=== PATIENT | female | born 2000 | race Caucasian/White ===

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

== ENCOUNTER 2018-05-17 22:24 | Inpatient (IN) | payer MEDICAID ==
--- NOTE | 2018-05-17 22:44 | EDPHY ---
General Time Seen by Provider: 05/17/18 22:44 Narrative: CLINICAL IMPRESSION: Small-bowel obstruction ASSESSMENT/PLAN: Patient is a 18-year-old female with a history of AL in remission, remote bowel obstruction requiring adhesiolysis presents to the Emergency Department with sudden-onset abdominal pain and decreased appetite. Patient is afebrile, she is uncomfortable appearing however not toxic-appearing. Her vital signs were reviewed, no findings to suggest sepsis. CBC revealed no evidence of leukocytosis, BMP grossly unremarkable. Lipase and hepatic function panel also grossly unremarkable. negative. CT abdomen and pelvis revealed multiple dilated loops of small bowel with a transition point present in the lower abdomen at midline consistent with small-bowel obstruction. Dr. Zapata with General surgery was consulted, she will be admitted to the surgery service for further observation and management. Last ate around 3 pm, NPO in the emergency department. NG tube placed, 300 mL of gastric contents removed. KUB showed NG with good placement. The patient remained hemodynamically stable and her pain adequately controlled prior to transfer to the floor. DIFFERENTIAL DX: Abdominal pain including but not limited to small-bowel obstruction, appendicitis, cholecystitis, gastritis and urinary tract infection. ED COURSE: 2254: Discussed with Dr. Salas 2335: Still awaiting results of CT scan, patient with escalating pain. Abdomen is soft, no evidence of a surgical abdomen at this time. Generalized tenderness to palpation with mild voluntary guarding. 0000: Case discussed with Dr. Zapata, findings consistent with a small- bowel obstruction. Will proceed with NG tube in the emergency department and admit. 0015: Dr. Zapata evaluating patient in the emergency department. 0030: KUB reviewed with Dr. Zapata, NG tube appropriately placed in the stomach. CHIEF COMPLAINT: Abdominal pain HPI: Patient is a 18-year-old female with a history of ALL, 4 years in remission as well as remote small bowel obstruction requiring adhesiolysis who presents to the Emergency Department with sudden-onset periumbilical abdominal pain. Patient reports this morning she woke up and felt fine, had a normal bowel movement. At around 9:00 a.m. She started to experience some discomfort around her umbilicus, it waxed and waned in intensity however significantly worsened this afternoon has been persistent. She does have a history of small-bowel obstruction 5 years prior requiring adhesiolysis several years prior, feels mildly similar from what she can remember. She denies any nausea, vomiting or fever. Her appetite has been down throughout the day. She denies any significant abdominal bloating, issues with constipation or diarrhea. She denies any pelvic pain, vaginal pain or vaginal bleeding. Last menstrual period was 2 weeks ago and normal. She denies any possibility of being . She denies any urinary symptoms to include dysuria, hematuria or increased frequency. PMH: A LL, bowel obstruction Pertinent Past Surgical History: Laparoscopic adhesiolysis Family History: Not contributory Social History: Denies illicit drug use or cigarette smoking REVIEW OF SYSTEMS: All other systems negative Constitutional: Decreased appetite. No fever, no chills. Eyes: No discharge, vision change ENT: No sore throat, congestion, ear pain. Cardiovascular: No chest pain, no palpitations. Respiratory: No cough, no shortness of breath. Gastrointestinal: Abdominal pain, no nausea, vomiting or diarrhea. Genitourinary: No hematuria, dysuria, flank pain, pelvic pain. Musculoskeletal: No back pain, joint swelling, joint pain, myalgias. Skin: No rashes, color change. Neurological: No headache, dizziness, weakness. PHYSICAL EXAM: General Appearance: Alert, uncomfortable appearing however not toxic-appearing. HENT: Normocephalic, atraumatic. Bilateral external ears are normal. Bilateral tympanic membranes are normal with pearly james reflex. Nares are clear, mucosa is pink. Oropharynx is clear, uvula is midline. There is no tonsillar enlargement or exudate. The dentition is normal. Eyes: PERRLA, EOMI. Conjunctiva pink, no pallor or injection Neck: Supple, nontender, no lymphadenopathy, no midline pain, FROM, no meningismus. Respiratory: There are no retractions, lungs are clear to auscultation. Cardiac: Regular rate and rhythm, no murmurs or gallops. Gastrointestinal: Abdomen is soft and mildly distended. They are well healed laparoscopic incisions on her lower abdomen. There are no masses or hernias appreciated. She has diffuse tenderness to palpation with voluntary guarding however is most tender in the periumbilical region. Bowel sounds are present. Neurological: Alert and oriented x 3, CN 2-12 grossly intact, normal gait no ataxia, DTR's intact, normal sensation and strength Skin: Warm, dry, no rashes, no nodules on palpation. Musculoskeletal: Extremities are symmetrical, full range of motion, no tenderness, deformity, swelling, or erythema. Psychiatric: Patient is oriented X 3, there is no agitation. MEDICAL DECISION MAKING: Patient was seen independently. Secondary supervising physician at time of evaluation was Dr. Salas. Diagnosis: Abdominal pain. New, requires workup Summary: See Assessment and Plan for summary of ED visit Clinical lab tests: ordered / reviewed. Independent visualization of images, tracing, or specimens: Yes. Decision to obtain medical records or history from someone other than the patient: No Review / Summarize previous medical records: Yes Discussed patient with another provider: Yes, Dr. Salas Patient Progress: Stable, admit. - History Smoking Status: Never smoked - Objective Vital Signs: Initial Vital Signs Temperature (C) 36.6 C 05/17/18 22:28 Heart Rate 81 05/17/18 22:28 Respiratory Rate 18 05/17/18 22:28 Blood Pressure 146/101 H 05/17/18 22:28 O2 Sat (%) 99 05/17/18 22:28 O2 Delivery Mode Room Air Allergies/Adverse Reactions: cephalexin [From Keflex] Allergy (Verified 05/17/18 22:27) egg [eggs] Allergy (Verified 05/17/18 22:27) tree nut [Nuts] Allergy (Verified 05/17/18 22:27) walnut Allergy (Verified 05/17/18 22:27) Laboratory Results: Laboratory Results 05/17/18 22:41 05/17/18 22:41 05/17/18 05/17/18 05/17/18 22:41 22:41 22:41 WBC 9.05 10^3/uL 10^3/uL (3.80-9.50) RBC 5.73 10^6/uL H 10^6/uL (4.18-5.33) Hgb 17.1 g/dL H g/dL (12.6-16.3) Hct 49.9 % H % (38.0-47.0) MCV 87.1 fL fL (81.5-99.8) MCH 29.8 pg pg (27.9-34.1) MCHC 34.3 g/dL g/dL (32.4-36.7) RDW 14.0 % % (11.5-15.2) Plt Count 283 10^3/uL 10^3/uL (150-400) MPV 8.9 fL fL (8.7-11.7) Neut % (Auto) 71.7 % % (39.3-74.2) Lymph % (Auto) 21.1 % % (15.0-45.0) [place] % (Auto) 6.3 % % (4.5-13.0) Eos % (Auto) 0.3 % L % (0.6-7.6) Baso % (Auto) 0.3 % % (0.3-1.7) Nucleat RBC Rel Count 0.0 % % (0.0-0.2) Absolute Neuts (auto) 6.48 10^3/uL 10^3/uL (1.70-6.50) Absolute Lymphs (auto) 1.91 10^3/uL 10^3/uL (1.00-3.00) Absolute Monos (auto) 0.57 10^3/uL 10^3/uL (0.30-0.80) Absolute Eos (auto) 0.03 10^3/uL 10^3/uL (0.03-0.40) Absolute Basos (auto) 0.03 10^3/uL 10^3/uL (0.02-0.10) Absolute Nucleated RBC 0.00 10^3/uL 10^3/uL (0-0.01) Immature Gran % 0.3 % % (0.0-1.1) Immature Gran # 0.03 10^3/uL 10^3/uL (0.00-0.10) Sodium 141 mEq/L mEq/L (135-145) Potassium 3.5 mEq/L mEq/L (3.5-5.2) Chloride 104 mEq/L mEq/L (97-110) Carbon Dioxide 22 mEq/l mEq/l (22-31) Anion Gap 15 mEq/L H mEq/L (6-14) BUN 16 mg/dL mg/dL (7-23) Creatinine 0.8 mg/dL mg/dL (0.6-1.0) Estimated GFR > 60 Glucose 84 mg/dL mg/dL (70-100) Calcium 10.4 mg/dL mg/dL (8.5-10.4) Total Bilirubin 0.5 mg/dL mg/dL (0.1-1.4) Conjugated Bilirubin 0.3 mg/dL mg/dL (0.0-0.5) Unconjugated Bilirubin 0.2 mg/dL mg/dL (0.0-1.1) AST 35 IU/L IU/L (14-46) ALT 44 IU/L IU/L (9-52) Alkaline Phosphatase 122 IU/L IU/L (38-126) Total Protein 8.3 g/dL H g/dL (6.3-8.2) Albumin 5.1 g/dL H g/dL (3.5-5.0) Lipase 251 IU/L IU/L (23-300) Beta HCG, Qual NEGATIVE Medications Given: Discontinued Medications Hydromorphone HCl (Dilaudid) 0.5 mg IVP EDNOW ONE Stop: 05/17/18 22:54 Last Admin: 05/17/18 23:14 Dose: 0.5 mg Hydromorphone HCl (Dilaudid) 0.5 mg IVP EDNOW ONE Stop: 05/18/18 00:42 Last Admin: 05/18/18 00:46 Dose: 0.5 mg Sodium Chloride (Ns) 1,000 mls @ 0 mls/hr IV EDNOW ONE; Wide Open PRN Reason: Protocol Stop: 05/17/18 22:54 Last Admin: 05/17/18 23:14 Dose: 1,000 mls Departure - Departure Disposition: [facility] Inpatient Acute Clinical Impression: Small bowel obstruction
[2018-05-17] MEDS ORDERED: NS 1,000 ML IV ONE (22:53)
[2018-05-17] MEDS ORDERED: HYDROmorphONE/DILAUDID 2 MG/ML INJ IVP ONE (22:53)
[2018-05-17 22:59] LABS: PLATELET COUNT 283 10^3/uL (150-400)
[2018-05-17] MEDS ORDERED: HYDROmorphONE/DILAUDID 1 MG/ML INJ ONE (23:12)
[2018-05-17] MEDS ORDERED: IOPAMIDOL (ISOVUE-300) 100 ML BTL ONE (23:20)
[2018-05-18] MEDS ORDERED: HYDROmorphONE/DILAUDID 2 MG/ML INJ IVP ONE ×3 (00:41→13:00)
[2018-05-18] MEDS ORDERED: HYDROmorphONE/DILAUDID 1 MG/ML INJ ONE (00:45)
[2018-05-18] MEDS ORDERED: BENZOCAINE UNIT DOSE SPRAY HURRICAINE MM ONE (01:12)
[2018-05-18] MEDS ORDERED: LIDOCAINE 2% VISCOUS 15 ML UDCUP ONE (01:13)
[2018-05-18] MEDS ORDERED: PROMETHAZINE HCL 25 MG/ML INJ IVP PRN (01:16)
[2018-05-18] MEDS ORDERED: ACETAMINOPHEN 325 MG TAB PO PRN (01:16)
--- NOTE | 2018-05-18 01:25 | PDGENHP ---
History and Physical - Chief Complaint abdominal pain - History of Present Illness 18yo F presents with acute onset abdominal pain. Briefly, was in her usual state of health this AM, awoke, had a normal BM and began throughout the day to have progressive, colicaky abdominal cramps. She states that throughout the day the cramping got somewhat worse and about a p.m. Tonight had a significant amount of pain which prompted her presentation here. She states that the colicky, crampy nature of the abdominal pain is similar to her bowel obstruction 5 years ago. She denies having any nausea or vomiting she has not been passing any flatus today. She does endorse having a small-bowel obstruction approximately 5 years ago where she was taken to the operating room for adhesiolysis prior to this she denies having any previous surgical history. She does have a medical history of a LL for which she is in remission, she takes no current medications. History Information - Allergies/Home Medication List Allergies/Adverse Reactions: cephalexin [From Keflex] Allergy (Verified 05/17/18 22:27) egg [eggs] Allergy (Verified 05/17/18 22:27) tree nut [Nuts] Allergy (Verified 05/17/18 22:27) walnut Allergy (Verified 05/17/18 22:27) I have personally reviewed and updated: family history, medical history, social history, surgical history Past Medical History: ALL in remission - Surgical History Additional surgical history: ex-laparoscopy 5yrs ago for SBO - Family History Positive for: non-pertinent - Social History Smoking Status: Never smoked Additional social history: student, boyfriend at bedside Review of Systems Review of Systems: ROS: 10pt was reviewed & negative except for what was stated in HPI & below Physical Exam Physical Exam: Temp Pulse Resp BP Pulse Ox 36.6 C 61 18 145/92 H 100 05/17/18 22:28 05/18/18 00:42 05/18/18 00:42 05/18/18 00:42 05/18/18 00:42 Constitutional: no apparent distress, appears nourished, uncomfortable Eyes: PERRL, anicteric sclera, EOMI Ears, Nose, Mouth, Throat: moist mucous membranes, hearing normal, ears appear normal, no oral mucosal ulcers Cardiovascular: regular rate and rhythym, no murmur, rub, or gallop, No edema Respiratory: no respiratory distress, no rales or rhonchi, clear to auscultation Gastrointestinal: other (hypoactive bowel sounds, minimally distended, tender to deep palpation, no rebound ) Genitourinary: no bladder fullness, no bladder tenderness Skin: warm, normal color, no rashes or abrasions, no fluctuance, no induration, No mottled Musculoskeletal: full muscle strength, no muscle tenderness, normal joint ROM, no joint effusions Psychiatric: interacting appropriately, not anxious, not encephalopathic, thought process linear Lymph, Heme, Immunologic: no cervical LAD, no supraclavicular LAD Lab Data & Imaging Review 05/17/18 22:41 05/17/18 22:41 WBC 9.05 10^3/uL (3.80-9.50) 05/17/18 22:41 RBC 5.73 10^6/uL (4.18-5.33) H 05/17/18 22:41 Hgb 17.1 g/dL (12.6-16.3) H 05/17/18 22:41 Hct 49.9 % (38.0-47.0) H 05/17/18 22:41 MCV 87.1 fL (81.5-99.8) 05/17/18 22:41 MCH 29.8 pg (27.9-34.1) 05/17/18 22:41 MCHC 34.3 g/dL (32.4-36.7) 05/17/18 22:41 RDW 14.0 % (11.5-15.2) 05/17/18 22:41 Plt Count 283 10^3/uL (150-400) 05/17/18 22:41 MPV 8.9 fL (8.7-11.7) 05/17/18 22:41 Neut % (Auto) 71.7 % (39.3-74.2) 05/17/18 22:41 Lymph % (Auto) 21.1 % (15.0-45.0) 05/17/18 22:41 [place] % (Auto) 6.3 % (4.5-13.0) 05/17/18 22:41 Eos % (Auto) 0.3 % (0.6-7.6) L 05/17/18 22:41 Baso % (Auto) 0.3 % (0.3-1.7) 05/17/18 22:41 Nucleat RBC Rel Count 0.0 % (0.0-0.2) 05/17/18 22:41 Absolute Neuts (auto) 6.48 10^3/uL (1.70-6.50) 05/17/18 22:41 Absolute Lymphs (auto) 1.91 10^3/uL (1.00-3.00) 05/17/18 22:41 Absolute Monos (auto) 0.57 10^3/uL (0.30-0.80) 05/17/18 22:41 Absolute Eos (auto) 0.03 10^3/uL (0.03-0.40) 05/17/18 22:41 Absolute Basos (auto) 0.03 10^3/uL (0.02-0.10) 05/17/18 22:41 Absolute Nucleated RBC 0.00 10^3/uL (0-0.01) 05/17/18 22:41 Immature Gran % 0.3 % (0.0-1.1) 05/17/18 22:41 Immature Gran # 0.03 10^3/uL (0.00-0.10) 05/17/18 22:41 Sodium 141 mEq/L (135-145) 05/17/18 22:41 Potassium 3.5 mEq/L (3.5-5.2) 05/17/18 22:41 Chloride 104 mEq/L (97-110) 05/17/18 22:41 Carbon Dioxide 22 mEq/l (22-31) 05/17/18 22:41 Anion Gap 15 mEq/L (6-14) H 05/17/18 22:41 BUN 16 mg/dL (7-23) 05/17/18 22:41 Creatinine 0.8 mg/dL (0.6-1.0) 05/17/18 22:41 Estimated GFR > 60 05/17/18 22:41 Glucose 84 mg/dL (70-100) 05/17/18 22:41 Calcium 10.4 mg/dL (8.5-10.4) 05/17/18 22:41 Total Bilirubin 0.5 mg/dL (0.1-1.4) 05/17/18 22:41 Conjugated Bilirubin 0.3 mg/dL (0.0-0.5) 05/17/18 22:41 Unconjugated Bilirubin 0.2 mg/dL (0.0-1.1) 05/17/18 22:41 AST 35 IU/L (14-46) 05/17/18 22:41 ALT 44 IU/L (9-52) 05/17/18 22:41 Alkaline Phosphatase 122 IU/L (38-126) 05/17/18 22:41 Total Protein 8.3 g/dL (6.3-8.2) H 05/17/18 22:41 Albumin 5.1 g/dL (3.5-5.0) H 05/17/18 22:41 Lipase 251 IU/L (23-300) 05/17/18 22:41 Beta HCG, Qual NEGATIVE 05/17/18 22:41 Visualized and Interpreted imaging results: Yes Interpretation: CT: SBO, transition point identified distally in pelvis. Fecalization of small bowel present, c/w somewhat of a chronic obstructive process Assessment & Plan Plan: 18yo F c SBO - plan for admission, hydration, NGT placement in ED given significant stomach distention - IV pain medication - discussed plan: decompress for 24hrs or so, re-evaluate. SBFT vs feeding trial vs OR at that time. She understands and wishes to proceed.
[2018-05-18] MEDS ORDERED: KETOROLAC 30 MG/1 ML SDV IVP ONE (01:32)
[2018-05-18] MEDS: NS 1,000 ML IV SCH ×2 (02:00→17:34)
[2018-05-18] MEDS: HYDROmorphONE/DILAUDID 1 MG/ML INJ IVP PRN ×2 (04:34→06:19)
[2018-05-18 04:55] LABS: PLATELET COUNT 212 10^3/uL (150-400)
--- NOTE | 2018-05-18 06:11 | PDMN ---
Medical Necessity Medical necessity: Pt meets IP criteria as of 05/18/2018 per and MCG M-210 ( Intestincal obstruction); est los > 2 mn for ongoing tx and evaluation of small bowel obstruction; requiring NGT, IVF, surgical consultation, and pain control. Hx ALL, SBO.
[2018-05-18] MEDS: ONDANSETRON 4 MG/2 ML VIAL IVP PRN ×2 (06:19→20:45)
[2018-05-18] MEDS: KETOROLAC 15 MG/1 ML SDV IVP SCH ×2 (07:30→11:18)
[2018-05-18] MEDS ORDERED: LORazepam 2 MG/ML INJ IVP PRN (08:24)
--- NOTE | 2018-05-18 08:48 | SOAPPROG ---
SOAP Progress Note Assessment/Plan: Assessment: 18yo F c SBO - VSS, HDs - WBC still WNL - abdomen machine steak tenderizer and not any improvement despite good NGT output - she is clearly not improving, have tentatively placed her on OR for today for ex-lap. Discussed case with her and mom Plan: 05/18/18 08:47 Subjective: not any better Objective: Vital Signs Temp Pulse Resp BP Pulse Ox 36.6 C 57 L 14 127/89 H 94 05/18/18 04:45 05/18/18 04:45 05/18/18 04:45 05/18/18 04:45 05/18/18 01:58 Laboratory Results 05/18/18 04:40 05/18/18 04:40 05/17/18 05/18/18 05/19/18 05:59 05:59 05:59 Intake Total 1000 Output Total 600 Balance 400 ICD10 Worksheet Patient Problems: Problems Problem Status Onset Small bowel obstruction Acute
--- NOTE | 2018-05-18 10:45 | PDHPUP ---
History & Physical Update H&P update statement: This history and physical update is based on an assessment of the patient which was completed after admission or registration (within 24 hours), but prior to the surgery/procedure. H&P update: H&P reviewed & patient examined, no change in patient's condition since H&P completed
[2018-05-18] MEDS ORDERED: LR 1,000 ML IV ONE (11:27)
[2018-05-18] MEDS ORDERED: HYDROmorphONE/DILAUDID 2 MG/ML INJ ONE (12:33)
[2018-05-18] MEDS ORDERED: PHENOL 177 ML THROAT SPRAY PO PRN (13:16)
[2018-05-18] MEDS ORDERED: CEPACOL LOZENGE PO PRN (13:16)
[2018-05-18] MEDS ORDERED: MIDAZOLAM 2 MG/2 ML VIAL IVP ONE (13:48)
--- NOTE | 2018-05-18 13:49 | PDANEPAE ---
ANE Past Medical History - Pulmonary History Hx Oxygen in Use at Home: No Hx Sleep Apnea: No Sleep Apnea Screening Result - Last Documented: Negative - Endocrine History Hx Diabetes: No ANE Review of Systems Review of Systems: ANE Patient History - Allergies Allergies/Adverse Reactions: cephalexin [From Keflex] Allergy (Verified 05/17/18 22:27) egg [eggs] Allergy (Verified 05/17/18 22:27) tree nut [Nuts] Allergy (Verified 05/17/18 22:27) walnut Allergy (Verified 05/17/18 22:27) - Home Medications Home Medications: Acetaminophen [Tylenol 325mg (*)] 325 mg PO DAILY PRN 05/18/18 [Last Taken Unknown] Herbals/Supplements -Info Only 1 ea PO DAILY 05/18/18 [Last Taken Unknown] Melatonin [Melatonin 3 MG (*)] 3 mg PO HS PRN 05/18/18 [Last Taken Unknown] Multivitamins W-Minerals [Thera M Plus Tablet (*)] 1 each PO DAILY 05/18/18 [ Last Taken Unknown] - NPO status NPO Since - Liquids (Date): 05/17/18 NPO Since - Liquids (Time): 15:00 NPO Since - Solids (Date): 05/17/18 NPO Since - Solids (Time): 15:00 - Smoking Hx Smoking Status: Never smoked ANE Labs/Vital Signs - Labs Result Diagrams: 05/18/18 04:40 05/18/18 04:40 - Vital Signs Blood Pressure: 140/105 Heart Rate: 84 Respiratory Rate: 18 O2 Sat (%): 93 Height: 157.48 cm Weight: 52.16 kg ANE Physical Exam - Airway Neck exam: FROM Mallampati Score: Class 2 - Pulmonary Pulmonary: no respiratory distress - Cardiovascular Cardiovascular: regular rate and rhythym - ASA Status ASA Status: II, E ANE Anesthesia Plan Anesthesia Plan: general endotracheal anesthesia Regional Anesthesia: TAP block
[2018-05-18] MEDS ORDERED: fentaNYL 100 MCG/2 ML INJ ONE ×2 (13:57→16:09)
[2018-05-18] MEDS ORDERED: PROPOFOL 200 MG/20 ML VIAL ONE (13:57)
--- NOTE | 2018-05-18 14:21 | ASMTCMCOM ---
CM Note CM Note Notes: Pt went to OR today for SBO. Pt has mother local. No therapies ordered now. CM to follow pt progress. Date Signed: 05/18/2018 02:06 PM Electronically Signed By:CYNTHIA Mcginnis
[2018-05-18] MEDS ORDERED: ROCURONIUM 50 MG/5 ML VIAL ONE (14:54)
[2018-05-18] MEDS ORDERED: ONDANSETRON 4 MG/2 ML VIAL ONE ×2 (14:54→16:19)
[2018-05-18] MEDS ORDERED: RANITIDINE 50 MG/2 ML VIAL ONE (14:54)
[2018-05-18] MEDS ORDERED: LIDOCAINE 2% 100 MG/5 ML SYR ONE (14:54)
[2018-05-18] MEDS: BUPIVACAINE 0.5% 30 ML SDV ONE ×2 (15:02→15:39)
[2018-05-18] MEDS ORDERED: GLYCOPYRROLATE 0.2 MG/1 ML VIAL ONE ×2 (15:32)
[2018-05-18] MEDS ORDERED: NEOSTIGMINE METHYLSULFATE 5 MG/5 ML SYR ONE (15:32)
--- NOTE | 2018-05-18 15:37 | POSTOPPROG ---
Post Op Note Date of Operation: 05/18/18 Surgeon: Siddhartha Zapata Firer Bisque Kiln: NEWTON Guerrero Anesthesiologist: Nino Anesthesia: GET(General Endotracheal) Pre-op Diagnosis: SBO Post-op Diagnosis: SBO Procedure: ex-lap, adhesiolysis, appendectomy, washout Findings: multiple adhesions in pelvis, lysed sharply, appendix NL Inf/Abcess present in the surg proc area at time of surgery?: No EBL: Minimal Total fluids administered: 1000cc NS washout Specimen(s): appendix
[2018-05-18] MEDS ORDERED: NALOXONE HCL 0.4 MG/ML INJ IVP PRN ×2 (15:38→16:15)
[2018-05-18] MEDS ORDERED: HYDROmorphONE/DILAUDID 6 MG/30 ML PCA IV PRN (15:38)
[2018-05-18] MEDS ORDERED: ONDANSETRON 4 MG/2 ML VIAL IVP PRN (16:15)
[2018-05-18] MEDS ORDERED: ALBUTEROL 3 ML DEYVIAL IH PRN (16:15)
--- NOTE | 2018-05-18 16:15 | POSTANESTH ---
Post Anesthetic Evaluation Cardiovascular Status: Similar to Pre-Op Cond Respiratory Status: Similar to Pre-op Cond. Level of Consciousness/Mental Status: Moderately Sleepy Pain Control: Adequate, Prn Tx Ordered Nausea/Vomiting Control: Adequate, Prn Tx Ordered Complications Possibly Related to Anesthesia: None Noted
[2018-05-18] MEDS ORDERED: MIDAZOLAM 2 MG/2 ML VIAL IVP PRN (16:25)
[2018-05-18] MEDS: fentaNYL 100 MCG/2 ML INJ IVP PRN ×2 (16:25→16:55)
[2018-05-18] MEDS ORDERED: MIDAZOLAM 2 MG/2 ML VIAL ONE (16:25)
[2018-05-18] MEDS: KETOROLAC 15 MG/1 ML SDV IVP PRN (18:05)
[2018-05-19] MEDS: KETOROLAC 15 MG/1 ML SDV IVP PRN (00:14)
[2018-05-19] MEDS: NS 1,000 ML IV SCH (01:33)
[2018-05-19] MEDS: ONDANSETRON 4 MG/2 ML VIAL IVP PRN ×2 (04:53→09:13)
[2018-05-19 05:43] LABS: PLATELET COUNT 241 10^3/uL (150-400)
[2018-05-19] MEDS ORDERED: morphINE PCA 30 MG/30 ML PCA IV PRN (08:46)
[2018-05-19] MEDS ORDERED: NALOXONE HCL 0.4 MG/ML INJ IVP PRN (08:46)
--- NOTE | 2018-05-19 09:02 | SOAPPROG ---
SOAP Progress Note Assessment/Plan: Assessment: 18yo F s/p ex-lap, adhesiolysis, appendectomy for SBO - vitals look good - pain better controlled with morphine, will switch to [employer], toradol for breakthrough - switch IVF to D5, increase rate. Her UOP and renal fxn has been appropriate - took 6 cups of ice chips lsat night, abdomen is still distended and no flatus. - will compromise, remove NGT, go slow with ice chips and clears. Discussed with nurse. Ambulate, chew gum. Await more robust bowel function - Anticipate she will take a significant amt of time to resolve this given fecalization of small bowel contents. Tried to convey this to the patient and her mom. Plan: 05/18/18 08:47 05/19/18 08:59 Subjective: wants NGT out, wants to eat Objective: Vital Signs Temp Pulse Resp BP Pulse Ox 37.0 C 88 16 124/73 H 96 05/19/18 08:00 05/19/18 08:00 05/19/18 08:00 05/19/18 08:00 05/19/18 08:00 Microbiology 05/18/18 14:30 Gram Stain - Final Peritoneal Fluid - Eswab Laboratory Results 05/19/18 04:20 05/19/18 04:20 05/18/18 05/19/18 05/20/18 05:59 05:59 05:59 Intake Total 1000 1289 Output Total 600 810 Balance 400 479 ICD10 Worksheet Patient Problems: Problems Problem Status Onset Small bowel obstruction Acute
[2018-05-19] MEDS: D5W 1/2 NS W/ 20 KCl/L 1,000 ML IV SCH ×2 (09:06→17:01)
--- NOTE | 2018-05-19 14:12 | ASMTCMCOM ---
CM Note CM Note Notes: Connected pt with representatives from [facility] today. Pt to discharge home independently with support from mother. CM to follow. D/c Plan: Independent Date Signed: 05/19/2018 02:11 PM Electronically Signed By:Perla Rivers
[2018-05-20] MEDS: D5W 1/2 NS W/ 20 KCl/L 1,000 ML IV SCH ×2 (01:07→09:06)
--- NOTE | 2018-05-20 12:36 | SOAPPROG ---
SOAP Progress Note Assessment/Plan: Assessment/plan: 18 y/o F s/p ex-lap, adhesiolysis, appendectomy for SBO POD #2 SBO. Improving. Passed "a lot" of gas this am while walking. Tolerating sips and chips. Increased uop. TKO iv. Pain. Improving. Ok to have oral oxycodone. Doesn't tolerate toradol. Advance to clears. Advised to go slow with this. Continue to ambulate as much as possible. S: Feeling good today. Pain improved. O: Alert Afebrile RRR No increased WOB Abdomen: still moderately distended, but soft. +bowel sounds. Incision well dressed. Scant shadowing on dressing present. 05/20/18 12:30 Objective: Vital Signs Temp Pulse Resp BP Pulse Ox 36.4 C 63 16 116/72 97 05/20/18 11:40 05/20/18 11:40 05/20/18 11:40 05/20/18 11:40 05/20/18 11:40 Microbiology 05/18/18 14:30 Gram Stain - Final Peritoneal Fluid - Eswab Laboratory Results 05/19/18 04:20 05/19/18 04:20 05/19/18 05/20/18 05/21/18 05:59 05:59 05:59 Intake Total 1289 1350 Output Total 810 Balance 479 1350 ICD10 Worksheet Patient Problems: Problems Problem Status Onset Small bowel obstruction Acute
[2018-05-20] MEDS: oxyCODONE IR 5 MG TAB PO PRN ×2 (14:10→14:42)
[2018-05-21] MEDS: HYDROCODONE/APAP 5/325 TAB PO PRN ×2 (14:48→22:37)
[2018-05-22] MEDS: SIMETHICONE 80 MG TAB CHEW PO PRN ×3 (04:38→22:26)
[2018-05-22] MEDS: HYDROCODONE/APAP 5/325 TAB PO PRN ×3 (08:00→21:33)
--- NOTE | 2018-05-22 10:11 | ASMTCMCOM ---
CM Note CM Note Notes: Pts case discussed w/ ANNALISE Green. Pt may d/c either today or tomorrow. No needs at this time. Pt is currently getting a regular diet but threw up last night. CM available for changes. Plan: Independent Date Signed: 05/22/2018 10:10 AM Electronically Signed By:MARIANNE Baker
[2018-05-22] MEDS: ONDANSETRON DISINTEGRATING 4 MG TAB PO PRN ×2 (12:18→21:33)
--- NOTE | 2018-05-22 13:25 | SOAPPROG ---
SOAP Progress Note Assessment/Plan: Assessment: 18yo F s/p ex-lap, adhesiolysis, appendectomy for SBO - vitals look good - pain is well controlled on orals - tolerating diet, had some nausea this AM, still nauseated this afternoon - plan to keep overnight, go slow with diet. Likely over did it with the sandwich - likely home tomorrow Plan: 05/18/18 08:47 05/19/18 08:59 05/22/18 13:25 Subjective: still nauseated Objective: Vital Signs Temp Pulse Resp BP Pulse Ox 36.8 C 82 14 112/75 94 05/22/18 11:21 05/22/18 11:21 05/22/18 11:21 05/22/18 11:21 05/22/18 11:21 Microbiology 05/18/18 14:30 Gram Stain - Final Peritoneal Fluid - Eswab Laboratory Results 05/22/18 11:34 05/19/18 04:20 05/21/18 05/22/18 05/23/18 05:59 05:59 05:59 Intake Total 850 238 Output Total 1500 400 Balance -650 -162 ICD10 Worksheet Patient Problems: Problems Problem Status Onset Small bowel obstruction Acute
[2018-05-22] MEDS ORDERED: CALCIUM CARBONATE 500 MG CHEWABLE TAB PO PRN (23:53)
[2018-05-23] MEDS: FAMOTIDINE 20 MG TAB PO SCH ×3 (00:03→21:08)
[2018-05-23] MEDS: HYDROCODONE/APAP 5/325 TAB PO PRN ×4 (06:17→22:02)
[2018-05-23] MEDS: SIMETHICONE 80 MG TAB CHEW PO PRN ×3 (07:15→22:03)
--- NOTE | 2018-05-23 09:55 | SOAPPROG ---
SOAP Progress Note Assessment/Plan: Assessment: 18-year-old female postop day 5 for exploratory laparotomy, adhesiolysis, appendectomy, for SBO. Path negative for cancer. - vital signs stable - pain well controlled with p.o. Medication - reports decreased bloating - has had some nausea with p.o. Intake, advised to keep portions small S: Patient reports decreased bloating, pain, overall feeling better today. She had some issues with p.o. Intake yesterday, however believes this may have been due to trying too much too fast. Discussed importance of small portion sizes, and that it is okay to not eat something if she does not feel up to it. O: General: Pleasant, well-nourished and well-groomed HENT: Normocephalic, no gross hearing deficits, mucous membranes moist, pupils equal and round, no scleral icterus Lungs: Clear to auscultation bilaterally, No increased work of breathing Cardiac: Regular rate, no peripheral edema Abdomen: Bowel sounds present, soft and appropriately tender. Incisions clean dry and intact - distended Skin: Warm and dry. Psych: Mood and affect normal Neuro: Grossly intact Plan: Patient's pain is well controlled with p.o. Pain meds however would like to keep in hospital 1 more day to ensure good p.o. Intake without symptomatic recurrence. Of note, labs showed low white count and teardrop cells, given history of leukemia worth following up with primary care to rule out recurrence , malignant process. WBC normalized today. Repeat CBC with smear in a week or two. Discussed this with patient's mom, who seems to understand and is agreeable to this plan. She does state that at baseline, Telma is known to have drops in her white count particularly when she is sick. 1. Continue PO narcotics PRN for pain 2. Diet as tolerated, small portions 3. Plan for d/c home tomorrow 4. Encourage primary care follow-up for abnormal CBC 05/23/18 09:53 05/23/18 09:56 05/23/18 10:02 05/23/18 10:19 05/23/18 10:23 05/23/18 11:17 05/23/18 11:19 Objective: Vital Signs Temp Pulse Resp BP Pulse Ox 36.9 C 70 14 118/69 94 05/23/18 07:23 05/23/18 07:23 05/23/18 07:23 05/23/18 07:23 05/23/18 07:23 Microbiology 05/18/18 14:30 Gram Stain - Final Peritoneal Fluid - Eswab Laboratory Results 05/22/18 11:34 05/19/18 04:20 05/22/18 05/23/18 05/24/18 05:59 05:59 05:59 Intake Total 238 Output Total 400 Balance -162 ICD10 Worksheet Patient Problems: Problems Problem Status Onset Small bowel obstruction Acute
[2018-05-23] MEDS ORDERED: CALCIUM CARBONATE 500 MG TAB PO PRN (18:43)
[2018-05-23] MEDS ORDERED: CALCIUM CARBONATE 500 MG CHEWABLE TAB PO PRN (19:00)
[2018-05-23] MEDS ORDERED: OXYCODONE/APAP 5/325 TAB PO PRN (20:09)
[2018-05-23] MEDS ORDERED: KETOROLAC 15 MG/1 ML SDV IVP PRN (20:10)
[2018-05-23] MEDS: SENNOSIDES 1 TAB PO SCH (21:08)
[2018-05-23] MEDS: ONDANSETRON DISINTEGRATING 4 MG TAB PO PRN (21:08)
[2018-05-23] MEDS: D5W 1/2 NS W/ 20 KCl/L 1,000 ML IV SCH (21:21)
[2018-05-24] MEDS: ONDANSETRON DISINTEGRATING 4 MG TAB PO PRN (01:30)
[2018-05-24] MEDS: D5W 1/2 NS W/ 20 KCl/L 1,000 ML IV SCH ×2 (05:22→13:39)
[2018-05-24] MEDS: SENNOSIDES 1 TAB PO SCH ×2 (10:47→20:23)
[2018-05-24] MEDS: oxyCODONE IR 5 MG TAB PO PRN ×4 (13:33→23:14)
[2018-05-24] MEDS: SIMETHICONE 80 MG TAB CHEW PO PRN ×2 (13:33→22:03)
--- NOTE | 2018-05-24 15:13 | SOAPPROG ---
SOAP Progress Note Assessment/Plan: Assessment: 18-year-old female postop day 6 for exploratory laparotomy, adhesiolysis, appendectomy, for SBO. Path negative for cancer. - vital signs stable - pain well controlled with p.o. Medication - reports slow decrease in bloating - has had some nausea with p.o. Intake, advised to keep portions small - New "stain" on tongue, pt. reports this happens when taking too many liver- cleared medications. Requests d/c all APAP S: Patient reports she's maintained small portions, however is still feeling bloated several hours after eating, to the point that she feels too bloated to take PO water. O: General: Pleasant, well-nourished and well-groomed woman sitting in bed, mom at bedside HENT: Normocephalic, no gross hearing deficits, mucous membranes moist, pupils equal and round, no scleral icterus, green film on tongue Lungs: Clear to auscultation bilaterally, No increased work of breathing Cardiac: Regular rate, no peripheral edema Abdomen: Bowel sounds present, soft and appropriately tender. Incisions clean dry and intact - distended Skin: Warm and dry. Psych: Mood and affect normal Neuro: Grossly intact Plan: Patient's pain is well controlled with p.o. Pain meds however will continue as inpatient due to poor PO intake and continuation of symptoms despite small portions. Concerned that, should we d/c before her bloating is better, she is of high risk for poor symptomatic control that would require readmission. 1. DC APAP, started oxy ir. Will monitor discoloration on tongue 2. Diet as tolerated, small portions 3. Plan for d/c when symptoms under better control 4. Encourage primary care follow-up for abnormal CBC 5. IV fluids to supplement poor PO hydration 05/23/18 09:53 05/23/18 09:56 05/23/18 10:02 05/23/18 10:19 05/23/18 10:23 05/23/18 11:17 05/23/18 11:19 05/24/18 14:56 05/24/18 15:38 Objective: Vital Signs Temp Pulse Resp BP Pulse Ox 36.6 C 62 16 111/63 94 05/24/18 06:55 05/24/18 06:55 05/24/18 06:55 05/24/18 06:55 05/24/18 06:55 Laboratory Results 05/22/18 11:34 05/19/18 04:20 05/23/18 05/24/18 05/25/18 05:59 05:59 05:59 Intake Total 1175 Output Total 800 1000 Balance -800 175 ICD10 Worksheet Patient Problems: Problems Problem Status Onset Small bowel obstruction Acute
[2018-05-24] MEDS: FAMOTIDINE 20 MG TAB PO SCH ×2 (16:04→20:27)
[2018-05-25] MEDS: D5W 1/2 NS W/ 20 KCl/L 1,000 ML IV SCH (01:44)
[2018-05-25 09:28] VITALS: BP 114/73
[2018-05-25] MEDS: oxyCODONE IR 5 MG TAB PO PRN ×2 (10:20→15:13)
[2018-05-25] MEDS: SIMETHICONE 80 MG TAB CHEW PO PRN (10:20)
[2018-05-25] MEDS: SENNOSIDES 1 TAB PO SCH (10:26)
[2018-05-25] MEDS: FAMOTIDINE 20 MG TAB PO SCH (12:12)
[2018-05-25] MEDS ORDERED: BISACODYL 10 MG SUPP PR PRN (13:28)
--- NOTE | 2018-05-25 15:37 | ASMTDCNOTE ---
Case Management Discharge Discharge Order Complete? Answers: Yes Patient to Obtain Answers: via Family Medications Transportation Arranged Answers: Family/Friends Transport will Pick (Date 05/25/2018 12:00 AM & Time) Family Notified Answers: Yes Notes: mother in the room Discharge Comments Notes: CM spoke with pt and mother in the room. Mother provided copy of secondary insurance which CM tubed to financial counseling and called about it. Pt to discharge independently with support from mother who will be staying in town to be supportive until pt is more independent. Pt and mother comfortable with this plan. No CM needs noted at this time. Date Signed: 05/25/2018 02:31 PM Electronically Signed By:Perla Rivers
--- NOTE | 2018-05-25 15:38 | ASMTLACE ---
EUGENIAE Length of stay for Answers: 7-13 days current admission Acuity / Level of Answers: Yes Care: Did the patient have an inpatient admission? Comorbidities - select Answers: Other Notes: ALL all that apply # of Emergency department Answers: 1-2 visits in the last 6 months Score: 10 Date Signed: 05/25/2018 02:32 PM Electronically Signed By:Perla Rivers
--- NOTE | 2018-05-25 15:55 | ASDISCHSUM ---
Discharge Information Plan Status:Home with No Needs Medically Cleared to Leave:05/25/2018 Discharge Date:05/25/2018 CM D/C Disposition:Home, Routine, Self-Care ADT D/C Disposition:Home, Routine, Self-Care Projected Discharge Date:05/25/2018 Transportation at D/C:Family Discharge Delay Reason: Follow-Up Date:05/25/2018 Discharge Slot: Final Diagnosis:small bowel obstruction Placement Information Patient Contact Information Contact Name:YAMILETH Relationship:Mother Address:[address] [place] [address] Phone: City:[place] Alternate Phone: State/Zip Code:[place] [address] Email: Financial Information Financial Class:Medicaid Primary Plan Desc:[employer] [place] Primary Plan Number:[id number] Secondary Plan Desc: Secondary Plan Number: Assessment Information LACE LACE Length of stay for Answers: 7-13 days current admission Acuity / Level of Answers: Yes Care: Did the patient have an inpatient admission? Comorbidities - select Answers: Other Notes: ALL all that apply # of Emergency department Answers: 1-2 visits in the last 6 months Score: 10 Date Signed: 05/25/2018 02:32 PM Electronically Signed By:Perla Rivers [facility] CM Progress Note CM Note CM Note Notes: Pt went to OR today for SBO. Pt has mother local. No therapies ordered now. CM to follow pt progress. Date Signed: 05/18/2018 02:06 PM Electronically Signed By:CYNTHIA Mcginnis [facility] Progress Note CM Note CM Note Notes: Connected pt with representatives from [facility] today. Pt to discharge home independently with support from mother. CM to follow. D/c Plan: Independent Date Signed: 05/19/2018 02:11 PM Electronically Signed By:Perla Rivers [facility] Progress Note CM Note CM Note Notes: Pts case discussed w/ ANNALISE Green. Pt may d/c either today or tomorrow. No needs at this time. Pt is currently getting a regular diet but threw up last night. CM available for changes. Plan: Independent Date Signed: 05/22/2018 10:10 AM Electronically Signed By:MARIANNE Baker Case Management Discharge Plan Note Case Management Discharge Discharge Order Complete? Answers: Yes Patient to Obtain Answers: via Family Medications Transportation Arranged Answers: Family/Friends Transport will Pick (Date 05/25/2018 12:00 AM & Time) Family Notified Answers: Yes Notes: mother in the room Discharge Comments Notes: CM spoke with pt and mother in the room. Mother provided copy of secondary insurance which CM tubed to financial counseling and called about it. Pt to discharge independently with support from mother who will be staying in town to be supportive until pt is more independent. Pt and mother comfortable with this plan. No CM needs noted at this time. Date Signed: 05/25/2018 02:31 PM Electronically Signed By:Perla Rivers Intervention Information Intervention Type:*Incorrect Registration Date of Service:05/18/2018 06:04 AM Patient Type:Observation Staff Member:Georgie Morales Hours: Discipline: Severity: Comment:
--- NOTE | 2018-05-26 11:37 | PDDCSUM ---
Discharge Summary Discharge Summary: DISCHARGE SUMMARY Date of Admission May 17 Date of Discharge May 25 DISCHARGE DIAGNOSES -small-bowel obstruction HOSPITAL COURSE The patient was admitted from the ED, conservative management was attempted but the patient failed this hospital day 2 had worsening abdominal pain. She was subsequently taken to the operating room where an uneventful lysis of adhesions was performed and no other significant pathology was identified. She had a prolonged hospital course with slow return of bowel function, had intermittent nausea and bloating but for the most part tolerating clears and was advanced to a regular diet and tolerated this. She was subsequently discharged home in stable condition on May 25. DISCHARGE MEDICATIONS Oxycodone and Zofran DISPOSITION Home FOLLOW UP As the patient lives 2 and 0.5 hr away, she will follow up with her primary care physician within the next week. She will follow up with me as needed.
--- NOTE | 2018-05-26 11:46 | GOP ---
[f rep st] OPERATIVE REPORT DATE OF OPERATION: 05/18/2018 SURGEON: Siddhartha Zapata MD [facility] PROFESSIONAL: Aishwarya Guerrero, PAC. ANESTHESIA: General endotracheal. ANESTHESIOLOGIST: Dr. Ugo Oneill. PREOPERATIVE DIAGNOSIS: Small bowel obstruction. POSTOPERATIVE DIAGNOSIS: Small bowel obstruction. PROCEDURE PERFORMED: 1. Exploratory laparotomy. 2. Extensive adhesiolysis. 3. Appendectomy. 4. Abdominal washout. FINDINGS: Multiple dense adhesions in the pelvis which were lysed sharply. The appendix was normal appearing, but given the proclivity for forming adhesions in the right pericolic gutter, an appendect desean was performed. There was a significant amount of clear ascites, a portion of which was taken for both culture and cytology. SPECIMENS: 1. Fluid for both culture and cytology. 1. Appendix. 2. ESTIMATED BLOOD LOSS: 5 cc. DESCRIPTION OF PROCEDURE: The patient and her family were greeted in the preoperative suite. Once a gain, risks, benefits, and alternatives were discussed. Consent was signed. She was then brought ba to the operative suite, placed on the OR table in supine position. After all anesthesia machines including SCDs were on and functioning, [employer] time-out was performed. After succ essful induction of general anesthesia, the patient's abdomen was prepped and draped in typical steri le fashion. I commenced the procedure by making an infraumbilical cutdown through which I carried do wn through the subcutaneous tissues. I incised the fascia sharply. Upon entering the patient's abdo men, a significant amount of clear ascites was encountered. This was evacuated. I increased my fasc ial incision to match that of the skin. I then systematically began to eviscerate the small bowel. There were some dense adhesions down into the pelvis which were lysed sharply. I was able to eviscer ate this portion of the small bowel. There was a significant amount of intra-abdominal adhesions whi ch were lysed sharply. There was no real clear transition point, although once opened up, it was sierra ar that the lumen was open to allow passage of contents. All the proximal bowel appeared to have fec alized material within it. It was milked through the area of concern without issue. I identified no other significant pathology. An appendectomy was performed by creating a window at the base. The a ppendix was stapled off. The base was then oversewn with multiple 3-0 Vicryl stitches, and the mesoa ppendix was taken, clamped and cut and suture ligated with 3-0 Vicryl. I then ran the small bowel fr om the ligament of Treitz distally down to the terminal ileum and found no other significant patholog y. The abdomen was washed out. It was then closed in layers. First the fascia was reapproximated w ith a running #1 PDS, the subcutaneous tissue with a 3-0 Vicryl, and the skin was closed with Monocry l over which Steri-Strips and Mastisol were placed. The patient was then extubated in the operative suite and taken to the PACU in satisfactory condition. DRAINS: None. COUNTS: All counts were reported as correct x2. /[id number]/MODL
== END 2018-05-25 16:14 | disposition home or self-care (01) | DRG 224 ==
LOC: OBSVTOIN 05-18 01:21 → F3E 05-18 01:47
PROVIDERS: ADMIT Surgery; ATTEND Surgery
PROC: 0DTJ0ZZ Resection of Appendix, Open Approach (ICD-10-PCS; principal; 2018-05-18 15:15)
PROC: 0DN80ZZ Release Small Intestine, Open Approach (ICD-10-PCS; principal; 2018-05-18 15:15)
PROC: 0W9G0ZZ Drainage of Peritoneal Cavity, Open Approach (ICD-10-PCS; principal; 2018-05-18 15:15)
DX: K56.609 Unspecified intestinal obstruction, unspecified as to partial versus complete obstruction (principal); R18.8 Other ascites; E86.9 Volume depletion, unspecified
CPT/HCPCS: 96374; J1170; J1885; J2001; J2250; J2270; J2405; J2704; J2710; J2780; J3010; Q9967